=== PATIENT | male | born 1990 | race Two or more races ===

== ENCOUNTER 2024-11-28 14:11 | Emergency (ER) | payer OTHER ==
[~2024-11-28] VITALS: Ht 165.1 cm; Wt 70.3 kg
[~2024-11-28 14:11] MED LIST: HUMALOG100 UNIT/2; LANTUS SOL100 UNIT/1
[2024-11-28 14:38] VITALS: BP 160/90; O2SAT 98
[2024-11-28] MEDS ORDERED: COZAAR100 MG PO (14:42)
[2024-11-28] MEDS ORDERED: ONDANSETRON HCL 2 MG/ML VIAL ONE (16:13)
[2024-11-28] MEDS ORDERED: FAMOTIDINE/PF 20 MG in 0.9 % SODIUM CHLORIDE 8 ML IV PUSH STA (16:13)
[2024-11-28] MEDS ORDERED: ENALAPRILAT DIHYDRATE 1.25 MG/ML VIAL IV ONE ×2 (16:13→16:15)
[2024-11-28] MEDS ORDERED: FAMOTIDINE/PF 20 MG/2 ML VIAL ONE (16:14)
[2024-11-28] MEDS ORDERED: INSULIN REGULAR, HUMAN 1,000 UNIT/10 ML UNITS IV ONE ×2 (16:15→19:45)
[2024-11-28] MEDS ORDERED: ONDANSETRON HCL 2 MG/ML VIAL IV ONE (16:15)
[2024-11-28] MEDS ORDERED: 0.9 % SODIUM CHLORIDE 1,000 ML IV SCH (16:15)
[2024-11-28 16:41] LABS: BASO % 0.7 % (0.1-1.2); EOS # 0.05 (0.04-0.54); EOS % 0.7 % (0.7-7.0); HEMATOCRIT 33.4 % (40.1-51.0); HEMOGLOBIN 11.9 g/dL (13.7-17.5); LYMPH # 0.85 (1.18-3.74); LYMPH % 12.6 % (19.3-53.1); MEAN CORPUSCULAR HEMOGLOBIN 28.5 pg (25.6-32.2); MONO # 0.38 (0.24-0.82); MONO % 5.6 % (4.7-12.5); NEUT # 5.37 (1.56-6.13); PLATELET COUNT 294 K/uL (163-369); RED BLOOD COUNT 4.17 M/uL (4.63-6.08); RED CELL DISTRIBUTION WIDTH 12.1 % (11.6-14.4)
[2024-11-28 17:02] LABS: CALCIUM 8.9 mg/dL (8.5-10.1); POTASSIUM 4.26 mEq/L (3.5-5.1)
[2024-11-28 17:09] LABS: ALBUMIN 3.1 gm/dL (3.4-5.0); BILIRUBIN TOTAL 0.97 mg/dL (0.3-1.2); CREATININE SERUM 2.68 mg/dL (0.70-1.30); GFR 27.59; GLOBULINA 4.1 G/DL (2.4-3.5); TOTAL PROTEIN 7.2 gm/dL (6.4-8.2)
[2024-11-28 17:09] LABS: PH,URINE 5.5 (5.0-8.0); URINE APPEARANCE Clear; URINE BILIRRUBIN Negative (NEGATIVE); URINE BLOOD Small; URINE COLOR Yellow; URINE KETONE 15 (NEGATIVE); URINE LEUKOCYTE Negative; URINE NITRATE Negative; URINE UROBILINOGEN 0.2 E.U./dl
[2024-11-28 17:12] LABS: URINE BACTERIA 86.8 uL (0.0-1933); URINE EPITHELIAL CELLS 8.8 uL (0.0-38.8); URINE RBC 11.9 uL (0.0-20.8); URINE WBC 6.7 uL (0.0-23.2)
[2024-11-28 17:13] LABS: URINE CAST 0.29 uL (0.0-1.40); URINE GLUCOSE >=1000 MG/DL (NEGATIVE); URINE PROTEIN 300 (NEGATIVE)
[2024-11-28 17:35] LABS: ABG PO2 105.7 mmHg (80-100); BASE EXCESS -1.6 mmol/l; BICARBONATE 22.2 mmol/l (23-25); SaO2 98.1 %; Tco2 23.2 mmol/l
[2024-11-28] MEDS ORDERED: ONDANSETRON ODT8 MG PO (20:29)
[2024-11-28 21:47] LABS: allen test SATISFACTORY; mode ROOM AIR; o2 21 %; puncture site RADIAL LEFT
== END 2024-11-28 21:43 | disposition home or self-care (01) ==
LOC: ER 15:18
PROVIDERS: General Practice
DX: K29.70 Gastritis, unspecified, without bleeding (principal); E11.65 Type 2 diabetes mellitus with hyperglycemia; Z79.4 Long term (current) use of insulin; I10 Essential (primary) hypertension

== ENCOUNTER 2025-04-22 12:16 | Inpatient (IN) | payer OTHER ==
[~2025-04-22] VITALS: Ht 167.6 cm; Wt 68.0 kg
[~2025-04-22 12:16] MED LIST changes: +COZAAR100 MG PO; +ONDANSETRON ODT8 MG PO
--- NOTE | 2025-04-22 13:08 | NUR ---
PTE REFIERE DOLOR ABDOMINAL Y VOMITOS DESDE HACE VARIOS ELIAS SE LE JANET S/V Y SE UBICA EN RICK.
--- NOTE | 2025-04-22 13:12 | NUR ---
SE PASA A LA UIDADA DE CRITICO ,Y SE LE REALIZA EKG.
[2025-04-22] MEDS ORDERED: ONDANSETRON HCL 2 MG/ML VIAL IV ONE (13:45)
[2025-04-22] MEDS ORDERED: LABETALOL HCL 20MG/4ML SYRINGE IV ONE (13:45)
[2025-04-22] MEDS ORDERED: FAMOtidine 10 MG/ML (4ML VIAL) IV PUSH ONE (13:45)
[2025-04-22] MEDS ORDERED: INSULIN REGULAR, HUMAN 1,000 UNIT/10 ML UNITS IV ONE (13:45)
[2025-04-22] MEDS ORDERED: 0.9 % SODIUM CHLORIDE 1,000 ML IV SCH ×2 (13:45→17:15)
[2025-04-22 13:56] LABS: BASO % 0.7 % (0.1-1.2); EOS # 0.03 (0.04-0.54); EOS % 0.5 % (0.7-7.0); LYMPH # 0.48 (1.18-3.74); LYMPH % 7.9 % (19.3-53.1); MEAN PLATELET VOLUME 11.50 fl (9.4-12.4); MONO # 0.32 (0.24-0.82); MONO % 5.3 % (4.7-12.5); NEUT # 5.19 (1.56-6.13); NEUT % 85.4 % (34.0-71.1); RED CELL DISTRIBUTION WIDTH 11.9 % (11.6-14.4)
[2025-04-22] MEDS ORDERED: ONDANSETRON HCL 2 MG/ML VIAL ONE ×3 (13:59→17:26)
--- NOTE | 2025-04-22 14:00 | NUR ---
SE RECIBE A PACIENTE ALERTA Y ORIENTADO X3 EN AREA DE CRITICO, SE CONECTA A MONITOR CARDIACO Y OXIMETRIA CONTINUA. SE ORIENTA A PACIENTE SOBRE PROCESO DE JANET DE MUESTRAS, CANALIZACION Y ADMINISTRACION DE MEDICAMENTOS, REFIERE ENTENDER. SE EJECUTAN ORDENES BAJO MEDIDAS ASEPTICAS. SE NOTIFICAN ESTUDIOS PENDIENTE Y ABGS. SE MARKOS A PACIENTE EN CAMA A NIVEL DE PISO JUNTO CON BARRANDAS ELEVADAS.
[2025-04-22] MEDS ORDERED: FAMOTIDINE/PF 20 MG/2 ML VIAL ONE (14:01)
[2025-04-22 14:29] LABS: INR 0.99
[2025-04-22] MEDS ORDERED: hydrALAZINE HCL 20 MG VIAL ONE (14:52)
[2025-04-22] MEDS ORDERED: hydrALAZINE HCL 20 MG VIAL IV ONE (15:00)
[2025-04-22 15:09] LABS: ALT/SGPT 15.0 U/L (12-78); AST/SGOT 14.0 U/L (15-37); BILIRUBIN TOTAL 1.48 mg/dL (0.3-1.2); BUN CREA RATIO 10.0 (7.0-25.0); CREATININE SERUM 3.76 mg/dL (0.70-1.30); GFR 18.55; GLOBULINA 3.9 G/DL (2.4-3.5)
[2025-04-22 15:14] LABS: OSMOLALITY SERUM 304.0 MOSM/KG (275-295)
[2025-04-22 15:15] LABS: GLUCOSE FASTING 542.0 mg/dL (65-100)
[2025-04-22] MEDS ORDERED: INSULIN GLARGINE,HUM.REC.ANLOG 1,000 UNITS/10 ML UNITS SUBCUTANEO ONE ×2 (15:30→16:09)
[2025-04-22] MEDS ORDERED: CLEVIDIPINE BUTYRATE 100 ML IV SCH (15:30)
[2025-04-22] MEDS ORDERED: 0.9 % SODIUM CHLORIDE 1,000 ML IV ONE (15:45)
--- NOTE | 2025-04-22 16:04 | NUR ---
SE RECIBE PTE ALERTA Y ORIENTADO X 3 ESFERAS EN CAMA CON BARANDAS ELEVADAS, CONECTADO A MONITOR CARDIACO Y OXIMETRIA,NIEGA DOLOR,AREA DE VENOPUNCION PATENTE Y REBECCA DE EDEMA CON FLUIDOS DE MANTENIMIENTO,SE MARKOS BAJO OBSERVACION POR CAMBIOS.SE ENTREGA URINAL PARA MUESTRA DE UA PENDIENTE.
[2025-04-22] MEDS ORDERED: DEXTROSE 50 % IN WATER 0.5 G/ML DISP.SYRIN IV PRN (17:15)
[2025-04-22] MEDS ORDERED: INSULIN LISPRO 1,000 UNIT/10 ML UNITS SUBCUTANEO PRN (17:15)
[2025-04-22] MEDS ORDERED: ONDANSETRON HCL 4 MG in 0.9 % SODIUM CHLORIDE 50 ML IV PRN (17:15)
[2025-04-22] MEDS ORDERED: ACETAMINOPHEN 325 MG TABLET PO PRN (17:15)
[2025-04-22] MEDS ORDERED: ACETAMINOPHEN 500 MG GEL..CAP PO PRN (17:30)
[2025-04-22 17:45] LABS: URINE APPEARANCE Clear; URINE BILIRRUBIN Negative (NEGATIVE); URINE BLOOD Trace; URINE COLOR Yellow; URINE KETONE Negative (NEGATIVE); URINE LEUKOCYTE Negative; URINE NITRATE Negative; URINE UROBILINOGEN 0.2 E.U./dl
[2025-04-22 18:02] LABS: URINE BACTERIA 28.7 uL (0.0-1933); URINE RBC 20.5 uL (0.0-20.8); URINE WBC 2.9 uL (0.0-23.2)
[2025-04-22 18:15] LABS: URINE CAST 0.29 uL (0.0-1.40); URINE EPITHELIAL CELLS 1.2 uL (0.0-38.8); URINE GLUCOSE >=1000 MG/DL (NEGATIVE); URINE PROTEIN 300 (NEGATIVE)
[2025-04-22 18:42] VITALS: BP 193/95; O2SAT 98
[2025-04-22] MEDS ORDERED: INSULIN LISPRO 1,000 UNIT/10 ML UNITS SUBCUTANEO ONE (18:49)
[2025-04-22] MEDS ORDERED: PROMETHAZINE HCL 50 MG/ML AMPUL IM ONE (19:51)
[2025-04-22 20:35] LABS: ALT/SGPT 16.0 U/L (12-78); AST/SGOT 15.0 U/L (15-37); BILIRUBIN TOTAL 1.38 mg/dL (0.3-1.2); BUN CREA RATIO 10.0 (7.0-25.0); CREATININE SERUM 3.28 mg/dL (0.70-1.30); GFR 21.72; GLOBULINA 4.6 G/DL (2.4-3.5)
[2025-04-22 20:36] LABS: OSMOLALITY SERUM 300.0 MOSM/KG (275-295)
[2025-04-22 20:38] LABS: GLUCOSE FASTING 240.0 mg/dL (65-100)
[2025-04-22] MEDS ORDERED: POTASSIUM CHLORIDE/NACL 0.9% 1,000 ML IV NR (20:45)
[2025-04-22 21:25] VITALS: BP 166/92; O2SAT 100
[2025-04-22] MEDS ORDERED: PANTOPRAZOLE SODIUM 80 MG in 0.9 % SODIUM CHLORIDE 100 ML IV SCH (21:30)
[2025-04-22] MEDS ORDERED: PROMETHAZINE HCL 50 MG/ML AMPUL IM PRN (21:30)
[2025-04-22 22:32] VITALS: BP 157/86
[2025-04-22 23:20] VITALS: BP 173/92; O2SAT 100
[2025-04-23] VITALS (17 sets, daily range): BP systolic 152–198; BP diastolic 81–108; O2SAT 96–100
[2025-04-23] MEDS ORDERED: INSULIN LISPRO 1,000 UNIT/10 ML UNITS SUBCUTANEO ONE (01:26)
[2025-04-23 06:19] LABS: BASO % 0.7 % (0.1-1.2); EOS # 0.07 (0.04-0.54); EOS % 0.8 % (0.7-7.0); LYMPH # 1.07 (1.18-3.74); LYMPH % 11.6 % (19.3-53.1); MEAN PLATELET VOLUME 11.50 fl (9.4-12.4); MONO # 0.68 (0.24-0.82); MONO % 7.4 % (4.7-12.5); NEUT # 7.31 (1.56-6.13); NEUT % 79.2 % (34.0-71.1); RED CELL DISTRIBUTION WIDTH 11.8 % (11.6-14.4)
[2025-04-23 06:52] LABS: ERYTHROCYTE SEDIMENTATION RATE 62 mm/hr (0-15)
[2025-04-23 07:01] LABS: BUN CREA RATIO 9 (7.0-25.0); CREATININE SERUM 3.26 mg/dL (0.70-1.30); GFR 21.87; TSH 0.825 uIU/mL (0.358-3.74)
[2025-04-23 07:03] LABS: GLUCOSE FASTING 248 mg/dL (65-100); OSMOLALITY SERUM 299 MOSM/KG (275-295)
[2025-04-23] MEDS ORDERED: POTASSIUM CHLORIDE/NACL 0.9% 20 MEQ/1,000 ML PIGGYBAG IV ONE (08:10)
[2025-04-23] MEDS ORDERED: LOSARTAN POTASSIUM 100 MG TABLET PO SCH (09:00)
[2025-04-23] MEDS ORDERED: PANTOPRAZOLE SODIUM 40 MG/VIAL VIAL IV SCH (09:00)
[2025-04-23] MEDS ORDERED: INSULIN REGULAR, HUMAN 1,000 UNIT/10 ML UNITS IV ONE (10:00)
[2025-04-23 19:26] LABS: ALT/SGPT 17.0 U/L (12-78); AST/SGOT 27.0 U/L (15-37); BILIRUBIN TOTAL 1.29 mg/dL (0.3-1.2); BUN CREA RATIO 8.0 (7.0-25.0); CREATININE SERUM 3.43 mg/dL (0.70-1.30); GFR 20.63; GLOBULINA 4.6 G/DL (2.4-3.5); GLUCOSE FASTING 91.0 mg/dL (65-100); OSMOLALITY SERUM 288.0 MOSM/KG (275-295)
[2025-04-24] VITALS (16 sets, daily range): BP systolic 117–192; BP diastolic 76–106; O2SAT 95–100
[2025-04-24 06:47] LABS: BASO % 0.7 % (0.1-1.2); EOS # 0.45 (0.04-0.54); EOS % 4.3 % (0.7-7.0); LYMPH # 1.55 (1.18-3.74); LYMPH % 14.9 % (19.3-53.1); MEAN PLATELET VOLUME 11.50 fl (9.4-12.4); MONO # 0.83 (0.24-0.82); MONO % 8.0 % (4.7-12.5); NEUT # 7.49 (1.56-6.13); NEUT % 71.8 % (34.0-71.1); RED CELL DISTRIBUTION WIDTH 11.9 % (11.6-14.4)
[2025-04-24 07:22] LABS: ALT/SGPT 16.0 U/L (12-78); AST/SGOT 20.0 U/L (15-37); BILIRUBIN TOTAL 0.83 mg/dL (0.3-1.2); BUN CREA RATIO 8.0 (7.0-25.0); CREATININE SERUM 3.43 mg/dL (0.70-1.30); GFR 20.63; GLOBULINA 3.9 G/DL (2.4-3.5); GLUCOSE FASTING 112.0 mg/dL (65-100); OSMOLALITY SERUM 287.0 MOSM/KG (275-295)
[2025-04-24] MEDS ORDERED: NIFEDIPINE 30 MG TAB.SA.OSM PO SCH (09:00)
[2025-04-24] MEDS ORDERED: CARVEDILOL 3.125 MG TABLET PO SCH (09:00)
[2025-04-24] MEDS ORDERED: POTASSIUM CHLORIDE 20MEQ/100ML H2O PB IV SCH (13:00)
[2025-04-25] VITALS (16 sets, daily range): BP systolic 120–182; BP diastolic 70–103; O2SAT 97–100
[2025-04-25 06:54] LABS: BASO % 1.0 % (0.1-1.2); EOS # 0.61 (0.04-0.54); EOS % 7.4 % (0.7-7.0); LYMPH # 1.25 (1.18-3.74); LYMPH % 15.1 % (19.3-53.1); MEAN PLATELET VOLUME 11.60 fl (9.4-12.4); MONO # 0.85 (0.24-0.82); MONO % 10.3 % (4.7-12.5); NEUT # 5.46 (1.56-6.13); NEUT % 66.1 % (34.0-71.1); RED CELL DISTRIBUTION WIDTH 12.2 % (11.6-14.4)
[2025-04-25 07:56] LABS: ALT/SGPT 14.0 U/L (12-78); AST/SGOT 21.0 U/L (15-37); BILIRUBIN TOTAL 0.53 mg/dL (0.3-1.2); BUN CREA RATIO 7.0 (7.0-25.0); CREATININE SERUM 3.45 mg/dL (0.70-1.30); GFR 20.49; GLOBULINA 3.7 G/DL (2.4-3.5); GLUCOSE FASTING 148.0 mg/dL (65-100); OSMOLALITY SERUM 290.0 MOSM/KG (275-295)
[2025-04-25] MEDS ORDERED: MAGNESIUM SULFATE IN WATER 2 GM/50 ML PIGGYBAG IV NR (12:00)
[2025-04-25] MEDS ORDERED: POTASSIUM CHLORIDE 20MEQ/100ML H2O PB IV NR (13:00)
[2025-04-25] MEDS ORDERED: DOXAZOSIN MESYLATE 2 MG TABLET PO SCH (19:13)
[2025-04-26] VITALS (20 sets, daily range): BP systolic 118–176; BP diastolic 62–109; O2SAT 99–100
[2025-04-26] MEDS ORDERED: PANTOPRAZOLE SODIUM 40 MG TABLET.DR PO SCH (07:30)
[2025-04-26] MEDS ORDERED: DOXAZOSIN MESYLATE 4 MG TABLET PO STA (11:40)
[2025-04-26] MEDS ORDERED: CARVEDILOL 12.5 MG TABLET PO STA (11:43)
[2025-04-26] MEDS ORDERED: SODIUM CHLORIDE 0.45 % 1,000 ML IV SCH (11:45)
[2025-04-26] MEDS ORDERED: CARVEDILOL 12.5 MG TABLET PO SCH (17:00)
[2025-04-26] MEDS ORDERED: DOXAZOSIN MESYLATE 4 MG TABLET PO SCH (17:00)
[2025-04-27 04:00] VITALS: BP 156/94; O2SAT 100
[2025-04-27 07:41] VITALS: BP 162/94; O2SAT 100
[2025-04-27] MEDS ORDERED: NIFEDIPINE 60 MG TAB.SA.OSM PO SCH (09:00)
[2025-04-27 12:00] VITALS: BP 116/75; O2SAT 100
[2025-04-27] MEDS ORDERED: POTASSIUM BICARBONATE/CIT AC 25 MEQ TABLET.EFF PO SCH (13:00)
[2025-04-27 15:17] VITALS: BP 133/87; O2SAT 100
[2025-04-27 20:00] VITALS: BP 134/91; O2SAT 100
[2025-04-27 23:06] VITALS: BP 152/91; O2SAT 99
[2025-04-28] MEDS ORDERED: hydrALAZINE HCL 20 MG VIAL IV PRN (02:45)
[2025-04-28] MEDS ORDERED: CLEVIDIPINE BUTYRATE 100 ML IV SCH (02:45)
[2025-04-28 05:07] VITALS: BP 155/86; O2SAT 100
[2025-04-28 06:38] LABS: BASO % 0.6 % (0.1-1.2); EOS # 0.21 (0.04-0.54); EOS % 3.1 % (0.7-7.0); LYMPH # 0.87 (1.18-3.74); LYMPH % 12.9 % (19.3-53.1); MEAN PLATELET VOLUME 12.10 fl (9.4-12.4); MONO # 0.71 (0.24-0.82); MONO % 10.5 % (4.7-12.5); NEUT # 4.82 (1.56-6.13); NEUT % 71.6 % (34.0-71.1); RED CELL DISTRIBUTION WIDTH 12.9 % (11.6-14.4)
[2025-04-28 07:12] VITALS: O2SAT 100
[2025-04-28 07:24] LABS: ALT/SGPT 11.0 U/L (12-78); AST/SGOT 21.0 U/L (15-37); BILIRUBIN TOTAL 0.7 mg/dL (0.3-1.2); BUN CREA RATIO 9.0 (7.0-25.0); CREATININE SERUM 2.74 mg/dL (0.70-1.30); GFR 26.73; GLOBULINA 3.4 G/DL (2.4-3.5); GLUCOSE FASTING 140.0 mg/dL (65-100); OSMOLALITY SERUM 289.0 MOSM/KG (275-295)
[2025-04-28 07:54] VITALS: BP 154/92; O2SAT 100
[2025-04-28 12:00] VITALS: BP 105/72; O2SAT 100
[2025-04-28 15:12] VITALS: BP 140/89; O2SAT 99
[2025-04-28] MEDS ORDERED: AMINO ACIDS/PROTEIN HYDROLYS 30 ML BLIST.PACK PO SCH (17:00)
[2025-04-28 20:00] VITALS: BP 137/94; O2SAT 100
[2025-04-29 00:41] VITALS: BP 150/87; O2SAT 98
[2025-04-29 08:31] VITALS: BP 488/107
[2025-04-29] MEDS ORDERED: NIFEDIPINE 90 MG TAB.SA.OSM PO SCH (09:00)
[2025-04-29] MEDS ORDERED: LACTULOSE 20 G/30 ML BLIST.PACK PO ONE (10:15)
[2025-04-29] MEDS ORDERED: MAGNESIUM HYDROXIDE 30 ML BLIST.PACK PO ONE (10:15)
[2025-04-29] MEDS ORDERED: MINERAL OIL 30 ML BLIST.PACK PO ONE (10:15)
[2025-04-29] MEDS ORDERED: PROCARDIA XL90 MG PO (15:26)
[2025-04-29] MEDS ORDERED: DOXAZOSIN MESYLA4 MG PO (15:26)
[2025-04-29] MEDS ORDERED: LOSARTAN POTAS100 MG PO (15:26)
[2025-04-29] MEDS ORDERED: CARVEDILOL12.5 MG PO (15:26)
[2025-04-29] MEDS ORDERED: HYDRALAZINE HCL50 MG PO (15:27)
[2025-04-29] MEDS ORDERED: COZAAR100 MG PO (15:27)
[2025-04-29 16:51] VITALS: BP 114/66; O2SAT 99
== END 2025-04-29 17:23 | disposition home or self-care (01) | DRG 683 ==
LOC: ER 12:16 → ICU-2 17:11 → ICU 04-26 18:52 → MEDI 04-28 21:29
PROVIDERS: General Practice; Internal Medicine; Specialist; ADMIT Internal Medicine; ATTEND Internal Medicine
PROC: 4A12X4Z Monitoring of Cardiac Electrical Activity, External Approach (ICD-10-PCS; principal; 2025-04-22)
PROC: BW21ZZZ Computerized Tomography (CT Scan) of Abdomen and Pelvis (ICD-10-PCS; 2025-04-22)
PROC: B246ZZZ Ultrasonography of Right and Left Heart (ICD-10-PCS; 2025-04-22)
PROC: 02HV33Z Insertion of Infusion Device into Superior Vena Cava, Percutaneous Approach (ICD-10-PCS; 2025-04-24)
PROC: B548ZZA Ultrasonography of Superior Vena Cava, Guidance (ICD-10-PCS; 2025-04-24)
DX: I12.9 Hypertensive chronic kidney disease with stage 1 through stage 4 chronic kidney disease, or unspecified chronic kidney disease (principal); I16.1 Hypertensive emergency; K90.49 Malabsorption due to intolerance, not elsewhere classified; N17.9 Acute kidney failure, unspecified; E10.65 Type 1 diabetes mellitus with hyperglycemia; E87.6 Hypokalemia; F41.9 Anxiety disorder, unspecified; E10.22 Type 1 diabetes mellitus with diabetic chronic kidney disease; N18.30 Chronic kidney disease, stage 3 unspecified; Z96.41 Presence of insulin pump (external) (internal); Z79.84 Long term (current) use of oral hypoglycemic drugs